=== PATIENT | female | born 1955 | race Caucasian/White ===

== ENCOUNTER → 2016-05-25 | Outpatient (CLI) | payer OTHER ==
[~2016-05-25] MED LIST: LORA1TAB4 PO
== END | disposition home or self-care (01) ==
LOC: PUL 11:07
PROVIDERS: ATTEND Family Medicine
DX: R05 Cough (principal)
CPT/HCPCS: 94060; 94726; 94729

== ENCOUNTER 2018-02-05 07:26 | Day surgery (SDC) | END 2018-02-05 11:09 | disposition home or self-care (01) ==